=== PATIENT | female | born 1960 ===

== ENCOUNTER 2018-05-05 09:45 | Emergency (ER) | payer SELFPAY ==
[2018-05-05] MEDS ORDERED: Sodium Chloride 0.9% 1,000 ML IV ONE (10:13)
[2018-05-05 10:32] LABS: BASO % 0.1 % (0.0-2.0); EOS # 0.2 K/uL (0.0-0.7); EOS % 3.1 % (0.0-4.0); LYMPH # 1.8 K/uL (1.0-4.3); LYMPH % 28.3 % (20.0-40.0); MEAN CELL VOLUME 88.6 fL (81.0-99.0); MEAN CORPUSCULAR HEMOGLOBIN 29.7 pg (27.0-31.0); MEAN CORPUSCULAR HGB CONC 33.5 g/dL (33.0-37.0); MONO # 0.5 K/uL (0.0-0.8); MONO % 8.1 % (0.0-10.0); NEUT # 3.8 K/uL (1.8-7.0); NEUT % 60.4 % (50.0-75.0); NRBC % 0.1 % (0.0-2.0); RBC 4.71 Mil/uL (3.80-5.20); RED CELL DISTRIBUTION WIDTH 13.9 % (11.5-14.5); WHITE BLOOD COUNT 6.3 K/uL (4.8-10.8)
[2018-05-05] MEDS ORDERED: Sodium Chloride 0.9% 1,000 ML ONE (10:32)
[2018-05-05 10:34] LABS: URINE BILIRUBIN NEGATIVE (NEGATIVE); URINE BLOOD 3+ (NEGATIVE); URINE CLARITY Hazy (Clear); URINE COLOR Yellow (YELLOW); URINE GLUCOSE (UA) NORMAL (Normal); URINE LEUKOCYTE ESTERASE NEG Leu/uL (Negative); URINE PROTEIN NEGATIVE (NEGATIVE); URINE UROBILINOGEN NORMAL mg/dL (0.2-1.0)
[2018-05-05 10:50] LABS: SQUAMOUS EPITHIAL 6 /hpf (0-5); URINE BACTERIA MOD (<OCC)
[2018-05-05 11:00] LABS: ALB/GLOB RATIO 1.2 (1.0-2.1); ALBUMIN 4.4 g/dL (3.5-5.0); ALT/SGPT 34 U/L (9-52); AST/SGOT 30 U/L (14-36); BLOOD UREA NITROGEN 11 mg/dL (7-17); CALCIUM 9.7 mg/dl (8.6-10.4); GFR AFRICAN-AMERICAN > 60; GFR NON-AFRICAN AMERICAN > 60; LIPASE 125 U/L (23-300)
[2018-05-05] MEDS ORDERED: Iodixanol 320 MG/ML 100 ML BOTTLE IV ONE (11:27)
--- NOTE | 2018-05-05 12:26 | CT ---
Date of service: 05/05/2018 PROCEDURE: CT Abdomen and Pelvis with contrast HISTORY: abd pain COMPARISON: None. TECHNIQUE: Contrast dose: 100 mL Visipaque 320 Radiation dose: Total exam DLP = 401 mGy-cm. This CT exam was performed using one or more of the following dose reduction techniques: Automated exposure control, adjustment of the mA and/or kV according to patient size, and/or use of iterative reconstruction technique. FINDINGS: LOWER THORAX: Unremarkable. LIVER: Diffuse fatty liver. No gross lesion or ductal dilatation. GALLBLADDER AND BILE DUCTS: Unremarkable. PANCREAS: Unremarkable. No gross lesion or ductal dilatation. SPLEEN: Unremarkable. ADRENALS: Unremarkable. No mass. KIDNEYS AND URETERS: Bilateral renal hypodensities these appear low smaller than 1 cm- bilateral renal cysts are believe most compatible with this. Symmetrical renal function noted there is left intra renal and lesser right intrarenal iliac to cysts. The right ureter is mildly dilated down to the mid to inferior SI joint level. No right sided source of obstruction appreciated. The left intrarenal and extrarenal pelviectasis is greater than that on the right and the left ureter bowel dilatation is greater than that on the right. Left ureter is due at dilated down to the bladder where a recently passed approximately 6 mm stone having having passed into the bladder is suggested. Currently no calculi E within the low left or right ureter are appreciated. VASCULATURE: Unremarkable. No aortic aneurysm. BOWEL: Unremarkable. No obstruction. No gross mural thickening. APPENDIX: Normal appendix. PERITONEUM: Unremarkable. No free fluid. No free air. LYMPH NODES: Unremarkable. No enlarged lymph nodes. BLADDER: Unremarkable. REPRODUCTIVE: Unremarkable. BONES: No acute fracture. OTHER FINDINGS: None. IMPRESSION: Bilateral hydroureter and bilateral intra and extra renal pelviectasis. The left hydroureter and left intra and extra renal pelviectasis is greater on the left . No obstruction on the right is appreciated. A 6 mm calculus recently passed into the bladder is attributed to the left asymmetrically prominent left hydroureter and left intra and extra renal pelviectasis. Findings were discussed with the ER physician Dr. Peralta at approximately 12 15 p.m. and this is also compatible with the patient's clinical presentation Hepatic steatosis
[2018-05-05 12:43] VITALS: BP 120/82; PULSE 72; RESP 18; TEMP 98.9
--- NOTE | 2018-05-05 12:47 | C.PDOC ---
History Of Present Illness 57 year old female presents to the ED for evaluation of left lower quadrant abdominal pain which began two days ago. Patient has not taken any medication for the pain. She denies fever, chills, nausea, vomiting, diarrhea or any urinary symptoms at this time. Time Seen by Provider: 05/05/18 10:04 Chief Complaint (Nursing): Abdominal Pain History Per: Patient History/Exam Limitations: no limitations Onset/Duration Of Symptoms: Days (2) Current Symptoms Are (Timing): Still Present Location Of Pain/Discomfort: LLQ Quality Of Discomfort: "Pain" Associated Symptoms: denies: Fever, Chills, Nausea, Vomiting, Diarrhea, Urinary Symptoms Additional History Per: Patient Abnormal Vaginal Bleeding: No Past Medical History Reviewed: Historical Data, Nursing Documentation, Vital Signs Vital Signs: Last Vital Signs Temp 98.9 F 05/05/18 12:42 Pulse 72 05/05/18 12:42 Resp 18 05/05/18 12:42 BP 120/82 05/05/18 12:42 Pulse Ox 100 05/05/18 14:37 - Medical History PMH: No Chronic Diseases Surgical History: Back Surgery (c-spine) Family History: States: Unknown Family Hx - Social History Hx Alcohol Use: No Hx Substance Use: No - Immunization History Hx Tetanus Toxoid Vaccination: (unk) Hx Influenza Vaccination: No Hx Pneumococcal Vaccination: (unk) Review Of Systems Constitutional: Negative for: Fever, Chills Gastrointestinal: Positive for: Abdominal Pain (left lower quadrant ). Negative for: Nausea, Vomiting, Diarrhea Genitourinary: Negative for: Dysuria, Hematuria Physical Exam - Physical Exam Appears: Non-toxic, No Acute Distress Skin: Normal Color, Warm, Dry Head: Atraumatic, Normacephalic Eye(s): bilateral: Normal Inspection Oral Mucosa: Moist Neck: Supple Chest: Symmetrical, No Deformity, No Tenderness Cardiovascular: Rhythm Regular, No Murmur Respiratory: Normal Breath Sounds, No Rales, No Rhonchi, No Wheezing Gastrointestinal/Abdominal: Soft, Tenderness (left lower quadrant ), No Guarding , No Rebound Extremity: Normal ROM, Capillary Refill (less than 2 seconds ) Neurological/Psych: Oriented x3, Normal Speech, Normal Cognition ED Course And Treatment - Laboratory Results Result Diagrams: 05/05/18 10:26 05/05/18 10:26 O2 Sat by Pulse Oximetry: 100 (on RA) Pulse Ox Interpretation: Normal - CT Scan/US CT A/P Other Rad Studies (CT/US): Read By Radiologist, Radiology Report Reviewed CT/US Interpretation: PROCEDURE: CT Abdomen and Pelvis with contrast. HISTORY : abd pain. COMPARISON: None. TECHNIQUE: Contrast dose: 100 mL Visipaque 320. Radiation dose: Total exam DLP = 401 mGy-cm. This CT exam was performed using one or more of the following dose reduction techniques: Automated exposure control, adjustment of the mA and/or kV according to patient size, and/ or use of iterative reconstruction technique. FINDINGS: LOWER THORAX: Unremarkable. LIVER: Diffuse fatty liver. No gross lesion or ductal dilatation. GALLBLADDER AND BILE DUCTS: Unremarkable. PANCREAS: Unremarkable. No gross lesion or ductal dilatation. SPLEEN: Unremarkable. ADRENALS: Unremarkable. No mass. KIDNEYS AND URETERS: Bilateral renal hypodensities these appear low smaller than 1 cm- bilateral renal cysts are believe most compatible with this. Symmetrical renal function noted there is left intra renal and lesser right intrarenal iliac to cysts. The right ureter is mildly dilated down to the mid to inferior SI joint level. No right sided source of obstruction appreciated. The left intrarenal and extrarenal pelviectasis is greater than that on the right and the left ureter bowel dilatation is greater than that on the right. Left ureter is due at dilated down to the bladder where a recently passed approximately 6 mm stone having having passed into the bladder is suggested. Currently no calculi E within the low left or right ureter are appreciated. VASCULATURE: Unremarkable. No aortic aneurysm. BOWEL: Unremarkable. No obstruction. No gross mural thickening. APPENDIX: Normal appendix. PERITONEUM: Unremarkable. No free fluid. No free air. LYMPH NODES: Unremarkable. No enlarged lymph nodes. BLADDER: Unremarkable. REPRODUCTIVE: Unremarkable. BONES: No acute fracture. OTHER FINDINGS: None. IMPRESSION: Bilateral hydroureter and bilateral intra and extra renal pelviectasis. The left hydroureter and left intra and extra renal pelviectasis is greater on the left . No obstruction on the right is appreciated. A 6 mm calculus recently passed into the bladder is attributed to the left asymmetrically prominent left hydroureter and left intra and extra renal pelviectasis. Findings were discussed with the ER physician Dr. Peralta at approximately 12 15 p.m. and this is also compatible with the patient' s clinical presentation. Hepatic steatosis Medical Decision Making Medical Decision Making: Assessment: 57 year old female with abdominal pain Plan: * bloodwork * urinalysis * CT A/P * Pepcid IVP * Toradol IVP * Zofran IVP * IV fliuds * reassess and disposition Progress: Bloodwork, urinalysis, CT A/P ordered and reviewed. Pepcid IVP, Toradol IVP, Zofran IVP, and IV Fluids given. 1249 - patient states improvement. Will discharge home to follow up with pmd in 2 days Disposition Counseled Patient/Family Regarding: Studies Performed, Diagnosis, Need For Followup, Rx Given - Disposition Referrals: Elbert Garcia MD [Staff Provider] - Disposition: HOME/ ROUTINE Disposition Time: 12:47 Condition: STABLE Additional Instructions: follow up with urologist in 2 days call to make an appointment take medications as prescribed return to ER if symptoms worsens or progress Prescriptions: Naproxen [Naprosyn] 500 mg PO BID PRN #16 tab PRN Reason: Pain, Moderate (4-7) Ondansetron ODT [Zofran ODT] 4 mg PO TID PRN #12 odt PRN Reason: Nausea/Vomiting Instructions: Renal Colic (DC) Forms: Gen Discharge Inst Turkmen, [employer] (Turkmen), Work Excuse Print Language: URDU - Clinical Impression Clinical Impression: Renal colic on left side - Scribe Statement The provider has reviewed the documentation as recorded by the Scribe (Meagan Tyler) Provider Attestation: All medical record entries made by the Scribe were at my direction and personally dictated by me. I have reviewed the chart and agree that the record accurately reflects my personal performance of the history, physical exam, medical decision making, and the department course for this patient. I have also personally directed, reviewed, and agree with the discharge instructions and disposition.
[2018-05-05 12:49] VITALS: O2SAT 100
== END 2018-05-05 13:07 | disposition home or self-care (01) ==
LOC: C.ER 09:45
DX: N23 Unspecified renal colic (principal)
CPT/HCPCS: 74177; 80053; 81001; 83690; 85025; 96361; 96374; 96375; 99285; J1885; J2405; J7030; Q9967